=== PATIENT | female | born 2000 | race Caucasian/White ===

== ENCOUNTER 2021-03-25 16:38 | Emergency (ER) | payer OTHER ==
[2021-03-25 19:10] LABS: BASOPHIL 0.3 % (0-2); BILIRUBIN NEGATIVE (NEGATIVE); BLOOD NEGATIVE Ery/uL (NEGATIVE); CLARITY CLEAR (CLEAR); COLOR YELLOW (YELLOW); EOSINOPHIL 0.6 % (0-5); GLUCOSE (U) NORMAL (NORMAL); HCT 38.3 % (37.0-47.0); HGB 12.8 g/dl (12.5-16.0); LEUKOCYTES NEGATIVE Leu/uL (NEGATIVE); LYMPHOCYTE 15.5 % (15-48); MCH 27.8 pg (25.0-31.0); MCHC 33.4 g/dL (32.0-36.0); MCV 83.1 fL (78.0-100.0); MONOCYTE 5.2 % (0-12); MPV 8.5 fL (6.0-9.5); NEUTROPHIL 77.9 % (41-80); NITRITE NEGATIVE (NEGATIVE); NRBC 0; PLT 290 K/uL (150-400); PROTEIN 1+ mg/dL (NEGATIVE); RBC 4.61 M/uL (4.20-5.40); RDW 13.1 % (11.5-14.0); SPECIFIC GRAVITY 1.025 (1.001-1.030); UROBILINOGEN 0.2 mg/dL (0.2-1.0); WBC 14.9 K/uL (4.0-10.5); pH 6.5 (5.0-9.0)
[2021-03-25 19:15] LABS: URINARY RBC RARE; URINARY WBC RARE
[2021-03-25 19:16] LABS: BACTERIA 1+; MUCOUS TRACE
[2021-03-25 19:37] LABS: BUN/CREAT RATIO (CALC) 12.3 RATIO; CREATININE 0.73 mg/dL (0.51-0.95); POTASSIUM 3.8 mmol/L (3.5-5.1)
[2021-03-25] MEDS ORDERED: MOTRIN600 MG PO (21:51)
== END 2021-03-25 22:08 | disposition home or self-care (01) ==
LOC: FER 16:38
PROVIDERS: Physician Assistant
DX: S20.211A Contusion of right front wall of thorax, initial encounter (principal); S50.12XA Contusion of left forearm, initial encounter; S80.212A Abrasion, left knee, initial encounter; S80.211A Abrasion, right knee, initial encounter; J45.909 Unspecified asthma, uncomplicated; Z88.8 Allergy status to other drugs, medicaments and biological substances; V43.52XA Car driver injured in collision with other type car in traffic accident, initial encounter; Y92.410 Unspecified street and highway as the place of occurrence of the external cause
CPT/HCPCS: 36415; 71260; 72040; 80048; 81001; 85025; J7030; Q9967